=== PATIENT | male | born 1985 | race Two or more races ===

== ENCOUNTER 2019-12-17 12:15 | Emergency (ER) | payer SELFPAY ==
[~2019-12-17] VITALS: Ht 167.6 cm; Wt 85.6 kg
--- NOTE | 2019-12-17 13:52 | RAD ---
Study: CR WRIST 3V RIGHT Indication: Pain after a fall. Comparison: None. Findings: Acute fracture of the distal radius with mild comminution and minimal displacement of a few fracture fragments at the dorsum of the distal radius as seen on the lateral view. Intra-articular extension. Distal radioulnar joint alignment is normal as is carpal alignment. No acute fracture seen elsewhere. Impression: Acute intra-articular fracture of the distal radius, as above. Electronically signed by: ARNEL MARION MD (12/17/2019 1:49 PM) [id number]
--- NOTE | 2019-12-17 13:59 | PHYS DOC ---
Past History Past Medical History: No Pertinent History Past Surgical History: No Surgical History Smoking: Non-smoker Alcohol Use: Occasionally Drug Use: None General Adult EDM: Chief Complaint: FACE PROBLEM HPI: HPI: Patient is a 34-year-old male who presents s/p a fall that occurred around 11 AM this morning. Patient states that he fell from around 16 feet off of a ladder. Patient denies wearing a hard hat at the time. Patient denies any loss of consciousness and was ambulatory after the fall. Patient is complaining of right wrist pain, left rib pain, chin, and dental pain. Patient denies any dizziness, blurriness, nausea, vomiting, shortness of breath, chest pain. Reports to mild numbness and tingling down the right arm. Reports mild lower back pain. Patient states he is not up-to-date on his tetanus vaccination and denies taking any blood thinners. Patient denies any use of alcohol this morning. Review of Systems: Review of Systems: Constitutional: Denies fever or chills Eyes: Denies redness or eye pain HENT: Denies nasal congestion or sore throat. Reports to oral and chin pain Respiratory: Denies cough or shortness of breath Cardiovascular: Denies chest pain or palpitations GI: Denies abdominal pain, nausea, or vomiting : Denies dysuria or hematuria Musculoskeletal: Reports lower back pain, left rib pain and right wrist pain. Integument: Denies rash or skin lesions Neurologic: Denies headache, focal weakness or sensory changes Complete systems were reviewed and found to be within normal limits, except as documented in this note. Family History: Family History: No pertinent family history. Current Medications: Current Meds: Current Medications Medications (Trade) Dose Ordered Sig/Marcelino Start Time Stop Time Status Last Admin Dose Admin Fentanyl Citrate (Fentanyl 2ml Vial) 50 mcg 1X ONCE 12/17/19 12:45 12/17/19 12:56 DC 12/17/19 12:55 50 MCG Neomycin/ Polymyxin/ Bacitracin (Triple Antibiotic Ointment) 1 pkt 1X ONCE 12/17/19 12:45 12/17/19 12:56 DC Allergies: Allergies: Allergies Coded Allergies Type Severity Reaction Last Updated Verified No Known Drug Allergies 12/17/19 No Physical Exam: PE: Constitutional: Well developed, well nourished, no acute distress, non-toxic appearance HENT: Normocephalic, mucosal laceration to lower lip on the left side with extension into vermilion border, loose left front tooth angled backwards Eyes: PERRL, EOMI, conjunctiva normal, no discharge Neck: Normal range of motion, no tenderness, supple Lungs & Thorax: No respiratory distress, equal chest rise and fall. Clear to auscultation bilaterally with no wheezes rales or rhonchi. Tenderness to palpation of left lower rib cage anteriorly and laterally. Abdomen: Soft, no tenderness, no distention no guarding Skin: Warm, dry, no erythema, no rash Back: Mild diffuse tenderness to lower back, no CVA tenderness Extremities: Tenderness to right wrist with ROM limited and no gross deformities observed, no edema Neurologic: Alert and oriented X 3, normal motor function, normal sensory function, no focal deficits noted Psychologic: Affect normal, judgment normal Current Patient Data: Vital Signs: Vital Signs Date Time Temp Pulse Resp B/P (MAP) Pulse Ox O2 Delivery O2 Flow Rate FiO2 12/17/19 12:55 18 98 Room Air Radiology/Procedures: Radiology/Procedures: Study: CR WRIST 3V RIGHT Indication: Pain after a fall. Comparison: None. Findings: Acute fracture of the distal radius with mild comminution and minimal displacement of a few fracture fragments at the dorsum of the distal radius as seen on the lateral view. Intra-articular extension. Distal radioulnar joint alignment is normal as is carpal alignment. No acute fracture seen elsewhere. Impression: Acute intra-articular fracture of the distal radius, as above. Electronically signed by: ARNEL MARION MD (12/17/2019 1:49 PM) PROCEDURE: CT HEAD AND MAXILLOFACIAL WO EXAMINATION: CT HEAD AND MAXILLOFACIAL WO CLINICAL HISTORY: Trauma, fall from ladder TECHNIQUE: Serial axial images without IV contrast were obtained from the vertex to the foramen magnum. CT Dose Reduction Employed: One or more of the following individualized dose reduction techniques were utilized for this examination: 1. Automated exposure control 2. Adjustment of the mA and/or kV according to patient size 3. Use of iterative reconstruction technique. COMPARISON: None FINDINGS: Post-operative change: None. Acute change: No evidence of an acute infarct or other acute parenchymal process. Hemorrhage: No evidence of acute intracranial hemorrhage. Mass Lesion / Mass Effect: There is no evidence of an intracranial mass or extraaxial fluid collection. No significant mass effect. Chronic change: None apparent. Parenchyma: There is no significant volume loss. The brain parenchyma is otherwise within normal limits for age. Ventricles: The ventricles are within normal limits of size and configuration for age. Facial bones: No evidence of acute facial bone fracture. Orbits: No evidence of acute orbital fracture. Globes are intact. Soft tissue planes of the orbits maintained. Paranasal Sinuses: No significant sinus disease. Foreign Bodies: No evidence of radiopaque foreign body. Soft Tissues: Minimal subcutaneous edema along the right frontal scalp. Mild mental soft tissue swelling. Other: Fractured and inferiorly displaced maxillary left central incisor. IMPRESSION: 1. No evidence of acute intracranial abnormality or facial bone fracture. 2. Fractured maxillary left central incisor. EXAMINATION: CT CERVICAL SPINE WO CONTRAST CLINICAL HISTORY: Trauma, fall from ladder TECHNIQUE: CT of the cervical spine without IV contrast. Spiral, high resolution axial images were obtained from the skull base to the cervicothoracic junction with sagittal and coronal planar reconstructions. CT Dose Reduction Employed: One or more of the following individualized dose reduction techniques were utilized for this examination: 1. Automated exposure control 2. Adjustment of the mA and/or kV according to patient size 3. Use of iterative reconstruction technique. COMPARISON: None. FINDINGS: Motion artifact limits evaluation for subtle fracture. Alignment: Straightening to slight reversal of the normal cervical lordosis, likely positional. Alignment otherwise anatomic. Craniocervical junction: Craniocervical junction is normal. Osseous structures/fracture: No evidence of a lytic or blastic process in the visualized spine. No evidence of acute or chronic fracture. Cervical soft tissues: The paraspinal soft tissues are within normal limits. Degenerative changes: No significant degenerative changes. IMPRESSION: No acute osseous abnormality of the cervical spine. EXAMINATION: CT CHEST ABDOMEN PELVIS WO (CT CHEST WITHOUT CONTRAST and CT ABDOMEN AND PELVIS WITHOUT IV CONTRAST) CLINICAL HISTORY: left rib/abdominal/flank pain s/p fall off ladder TECHNIQUE: CT of the chest from the thoracic inlet to the upper abdomen was performed without intravenous contrast. CT of the abdomen and pelvis was performed using standard technique, scanning from just above the dome of the diaphragm to the symphysis pubis. CT Dose Reduction Employed: One or more of the following individualized dose reduction techniques were utilized for this examination: 1. Automated exposure control 2. Adjustment of the mA and/or kV according to patient size 3. Use of iterative reconstruction technique. COMPARISON: None FINDINGS: Prominent motion artifact somewhat limits evaluation. CHEST: Lines, tubes, and devices: None. Lung parenchyma and pleura:No consolidation, pleural effusion, or pneumothorax. No suspicious pulmonary nodule. Central airways are patent. Thoracic inlet, heart, and mediastinum: No lymphadenopathy in the axillary, mediastinal, or hilar regions. The thoracic aorta and main pulmonary artery are normal in caliber. The cardiac chambers are normal in size. No pericardial effusion or thickening. Bones/Soft Tissues: No acute osseous abnormality. ABDOMEN/PELVIS: Liver: Borderline hepatomegaly with moderate steatosis. No evidence of hepatic laceration. Biliary: Mildly distended gallbladder. Spleen: No evidence of splenic laceration. Pancreas: Unremarkable. Adrenals: No mass. Kidneys: No evidence of renal laceration. No calculus, hydronephrosis or finding to suggest a cyst or mass in the unenhanced kidneys. GI Tract: No bowel dilation. Normal appendix. Lymph Nodes: No lymphadenopathy. Mesentery/peritoneum: No ascites. Retroperitoneum: No mass. Vasculature: No abdominal aortic or iliac artery aneurysm. Pelvis: No mass or ascites. Mildly filled urinary bladder. Pelvic organs within normal limits for age. Bones/Soft Tissues: No acute osseous abnormality. IMPRESSION: No evidence of acute cardiopulmonary or abdominopelvic abnormality. Borderline hepatomegaly with moderate steatosis. Electronically signed by: Scooby Ruiz DO (12/17/2019 1:55 PM) [id number] Course & Med Decision Making: Course & Med Decision Making Pertinent Labs and Imaging studies reviewed. (See chart for details) Patient is a 34-year-old male who presents s/p fall that occurred this morning. Patient was x-ray showed an acute intra-articular fracture of his right distal radius and a sugar tong splint and sling was applied. Pain medications were given and tetanus vaccination was updated. Patient tolerated repositioning of his left front tooth back into neutral position. CT cervical spine, chest abdomen pelvis, head and facial bones were all negative for acute fractures. Oral laceration at his vermilion border on the lower lip was repaired. Oral antibiotics were provided for prophylactic coverage oral macy. Patient was provided with follow-up instructions and given prescription for pain control. Patient was instructed to use incentive spirometer at home. Patient was agreeable to plan for discharge. Nazario Disclaimer: Nazario Disclaimer: This electronic medical record was generated, in whole or in part, using a voice recognition dictation system. Splinting Splinting : Location: Right arm Pre-Made Type: aircast Splint: sugar-tong Pre-Proc Neuro Vasc Exam: normal Post-Proc Neuro Vasc Exam: normal Progress Sling was applied on right arm. Laceration/Wound Repair Laceration/Wound Repair : Wound Location: mouth Wound's Depth, Shape: linear Wound Length (cm): 2 Wound Explored: clean Irrigated w/ Saline (ccs): 50 Betadine Prep?: Yes Anesthesia: Lidocaine w/ Epi Wound Debrided: minimal Wound Repaired With: sutures Suture Size/Type: 6:0 Number of Sutures: 2 Deep Layer Suture Size/Type: 5:0 Number Deep Layer Sutures: 1 Sterile Dressing Applied?: No Progress Verbal consent obtained. Time out performed. Hand hygiene utilized. Wound cleaned with ChloraPrep. Anesthesia obtained via a 30-gauge hypodermic needle with 8 mL's of lidocaine 2% with epinephrine. Copious irrigation performed. Wound well approximated with three sutures. Patient tolerated procedure well and without difficulty. Empiric antibiotic ointment applied prior to sterile dressing. Departure Departure: Impression: Primary Impression: Fall from ladder Qualified Codes: W11.XXXA - Fall on and from ladder, initial encounter Additional Impressions: Lip laceration Qualified Codes: S01.511A - Laceration without foreign body of lip, initial encounter Tooth fracture Qualified Codes: S02.5XXB - Fracture of tooth (traumatic), initial encounter for open fracture Distal radius fracture, right Qualified Codes: S52.501A - Unspecified fracture of the lower end of right radius, initial encounter for closed fracture Rib contusion Qualified Codes: S20.211A - Contusion of right front wall of thorax, initial encounter Disposition: 01 HOME/RESIDENCE PRIOR TO ADM Condition: STABLE Referrals: PCP,NO (PCP) TONYA SANDOVAL MD Patient Instructions: Chest Contusion, [id number], Facial Laceration, [id number], Incentive Spirometer, Laceration Care, Adult, [id number], Mouth Laceration, [id number], Tooth Fracture, Wrist Fracture, [id number] Scripts Amoxicillin/Potassium Clav (AUGMENTIN 875-125 TABLET) 1 Each Tablet 1 TAB PO BID for Tooth fracture for 7 Days, #14 TAB 0 Refills Prov: JALEN TIDWELL DO 12/17/19 Chlorhexidine Gluconate (PERIDEX) 15 Ml Mouthwash 15 ML PO BID for oral lacerations, #473 ML 0 Refills Prov: JALEN TIDWELL DO 12/17/19 Hydrocodone Bit/Acetaminophen (NORCO 5-325 TABLET) 1 Each Tablet 0.5-1 TAB PO Q6HRS PRN for PAIN, #10 TAB Prov: JALEN TIDWELL DO 12/17/19 Justification of Admission: Justification of Admission: Justification of Admission Dx: N/A JALEN TIDWELL DO Dec 17, 2019 13:59
[2019-12-17] MEDS: LIDOCAINE 2%/EPI 1:100,000 20 ML VIAL. IJ ONE (14:30)
[2019-12-17] MEDS: NEOMY/BACITR/POLYMYXIN OINT PACKET. TP ONE ×2 (14:30→14:31)
[2019-12-17] MEDS: DIPH,PERTUSS(ACELL),TET VAC/PF 0.5 ML SYRINGE. VAX IM ONE (14:31)
[2019-12-17] MEDS: AMOXICILLIN/K CLAV 875/125MG TABLET. PO ONE (16:07)
[2019-12-17] MEDS ORDERED: AMOX1TAB61 PO (16:26)
[2019-12-17] MEDS ORDERED: CHLO15MO2 PO (16:26)
[2019-12-17] MEDS ORDERED: HYDR-3165 PO (16:26)
[2019-12-17 16:45] VITALS: BP 153/94
== END 2019-12-17 16:45 | disposition home or self-care (01) ==
LOC: ER 12:15
DX: S02.5XXA Fracture of tooth (traumatic), initial encounter for closed fracture (principal); S52.501A Unspecified fracture of the lower end of right radius, initial encounter for closed fracture; S01.511A Laceration without foreign body of lip, initial encounter; S20.211A Contusion of right front wall of thorax, initial encounter; M54.5 Low back pain; W11.XXXA Fall on and from ladder, initial encounter; Y93.89 Activity, other specified; Y92.89 Other specified places as the place of occurrence of the external cause; Y99.8 Other external cause status
CPT/HCPCS: 29125; 40650; 70450; 70486; 71250; 72125; 73110; 74176; 90471; 90715; 96374; 96376; 99285; J3010